=== PATIENT | female | born 1965 | race Caucasian/White ===

== ENCOUNTER 2016-10-13 10:55 | Emergency (ER) | payer MEDICAID ==
[~2016-10-13] VITALS: Ht 170.2 cm; Wt 88.4 kg
[~2016-10-13 10:55] MED LIST: ATOR40TA PO; HYDR-3144 PO
[2016-10-13] MEDS ORDERED: ALBUTEROL/IPRATROPIUM 2.5MG/0.5MG, 3 ML ONE (11:39)
[2016-10-13] MEDS ORDERED: INSU100V8 SQ (11:40)
[2016-10-13] MEDS ORDERED: INSU100V9 SQ (11:40)
[2016-10-13 11:42] VITALS: BP 141/67
[2016-10-13] MEDS ORDERED: SODIUM CHLORIDE FLUSH 10ML SYR IVF ONE (12:00)
[2016-10-13] MEDS ORDERED: ALBUTEROL/IPRATROPIUM 2.5MG/0.5MG, 3 ML NPPB ONE (12:00)
[2016-10-13 12:04] LABS: BLOOD UREA NITROGEN 15 mg/dL (7-18)
== END 2016-10-13 13:16 | disposition home or self-care (01) ==
LOC: ED 12:27
DX: J20.8 Acute bronchitis due to other specified organisms (principal); E11.9 Type 2 diabetes mellitus without complications; E78.00 Pure hypercholesterolemia, unspecified; I10 Essential (primary) hypertension; J45.909 Unspecified asthma, uncomplicated; I88.9 Nonspecific lymphadenitis, unspecified
CPT/HCPCS: 36415; 71020; 80048; 82040; 85025; 94640; 99285; J7512; J7620

== ENCOUNTER 2017-06-30 20:22 | Emergency (ER) | payer MEDICAID ==
[~2017-06-30] VITALS: Ht 170.2 cm; Wt 85.0 kg
[~2017-06-30 20:22] MED LIST changes: -HYDR-3144 PO; +HYDR-3245 PO; +INSU100V8 SQ; +INSU100V9 SQ
[2017-06-30] MEDS ORDERED: ONDANSETRON ODT 4 MG PO ONE (21:00)
[2017-06-30] MEDS ORDERED: ACETAMINOPHEN 500 MG TABLET PO ONE (21:00)
[2017-06-30] MEDS ORDERED: ACETAMINOPHEN 500 MG TABLET ONE (21:08)
[2017-06-30] MEDS ORDERED: ONDANSETRON ODT 4 MG ONE (21:08)
[2017-06-30] MEDS ORDERED: SODIUM CHLORIDE 0.9% 1,000ML IVBOLUS ONE ×2 (21:30→23:00)
[2017-06-30] MEDS ORDERED: SODIUM CHLORIDE FLUSH 10ML SYR IVF ONE (21:30)
[2017-06-30 21:40] LABS: MEAN CORPUSCULAR HEMOGLOBIN 30.8 pg (27.0-34.8); MEAN CORPUSCULAR VOLUME 90.5 fL (80-100); RED BLOOD COUNT 5.91 x10^6/uL (3.82-5.3); RED CELL DISTRIBUTION WIDTH 14.3 % (9.6-15.2)
[2017-06-30 21:52] LABS: ANION GAP 7 mmol/L (5-15); CALCIUM 10.3 mg/dL (8.5-10.1); CHLORIDE 99 mmol/L (98-107); CREATININE 0.95 mg/dL (0.55-1.02)
[2017-06-30 21:53] LABS: ALANINE AMINOTRANSFERASE 25 U/L (12-78); ALBUMIN 3.7 g/dL (3.4-5.0)
[2017-06-30 21:55] LABS: ALKALINE PHOSPHATASE 202 U/L (45-117); BASOPHILS % (AUTO) 0 % (0-1); BILIRUBIN,TOTAL 1.3 mg/dL (0.2-1.0); EOSINOPHILS # (AUTO) 0.05 x10^3/uL (0-0.4); EOSINOPHILS % (AUTO) 1 % (1-7); LYMPHOCYTES # (AUTO) 1.03 x10^3/uL (1-3.4); LYMPHOCYTES % (AUTO) 11 % (22-44); MD SCAN; MEAN PLATELET VOLUME 9.7 fL (7.4-10.4); MONOCYTES # (AUTO) 0.43 x10^3/uL (0.2-0.8); MONOCYTES % (AUTO) 5 % (2-9); NEUTROPHILS # (AUTO) 7.76 x10^3/uL (1.8-6.8); NEUTROPHILS % (AUTO) 84 % (42-75); PLATELET COUNT 97 x10^3/uL (130-400); TOTAL PROTEIN 8.2 g/dL (6.4-8.2)
[2017-06-30] MEDS ORDERED: ALBUTEROL/IPRATROPIUM 2.5MG/0.5MG, 3 ML ONE (22:22)
[2017-06-30] MEDS ORDERED: ALBUTEROL/IPRATROPIUM 2.5MG/0.5MG, 3 ML NPPB ONE (22:30)
[2017-06-30 23:21] LABS: CULTURE INDICATED? YES; MICROSCOPIC INDICATED
[2017-06-30] MEDS ORDERED: OMNIPAQUE 350 MG/ML, 100ML BOTTLE ONE (23:24)
[2017-06-30 23:39] VITALS: BP 136/82
[2017-07-01] MEDS ORDERED: CEFTRIAXONE PMX 1GM/50ML 50 ML ONE (01:06)
[2017-07-01] MEDS ORDERED: LACTATED RINGERS 1,000 ML IV SCH (01:30)
[2017-07-01] MEDS ORDERED: INSULIN GLARGINE 100 UNITS/ML, PEN SQ-INSULIN SCH (01:30)
[2017-07-01] MEDS ORDERED: HEPARIN 5,000 UNITS/ML, 1ML SQ SCH (01:30)
[2017-07-01] MEDS ORDERED: GUAIFENESIN/DM 200-20MG, 10ML UDC PO PRN (01:30)
[2017-07-01] MEDS ORDERED: hydrALAzine 20 MG/ML, 1ML IVPush PRN (01:30)
[2017-07-01] MEDS ORDERED: ACETAMINOPHEN 325 MG TABLET PO PRN (01:30)
[2017-07-01] MEDS ORDERED: HYDROcodone/APAP 10/325 MG TABLET PO PRN (01:30)
[2017-07-01] MEDS ORDERED: DEXTROSE 50%, 50ML SYRINGE IVPush PRN (01:30)
[2017-07-01] MEDS ORDERED: DEXTROSE 4 GM TAB.CHEW PO PRN (01:30)
[2017-07-01] MEDS ORDERED: GLUCAGON 1 MG IM PRN (01:30)
[2017-07-01] MEDS ORDERED: ONDANSETRON 2MG/ML, 2ML IVPush PRN (01:30)
[2017-07-01] MEDS ORDERED: POLYETHYLENE GLYCOL 17 GM PACKET PO PRN (01:30)
[2017-07-01] MEDS ORDERED: CEFTRIAXONE PMX 1GM/50ML 50 ML IV ONE (01:30)
[2017-07-01] MEDS ORDERED: INSULIN GLULISINE 10 UNIT SQ SCH (08:00)
[2017-07-01] MEDS ORDERED: SODIUM CHLORIDE FLUSH 10ML SYR IVF SCH (09:00)
[2017-07-01] MEDS ORDERED: ATORVASTATIN 40 MG TABLET PO SCH (21:00)
== END 2017-07-01 01:55 | disposition left against medical advice (07) ==
LOC: ED 23:33 → EDIP 07-01 01:00 → UNDOADMIN 07-01 01:00 → ED 07-01 01:55
DX: N30.90 Cystitis, unspecified without hematuria (principal); R65.20 Severe sepsis without septic shock; J96.01 Acute respiratory failure with hypoxia; A41.9 Sepsis, unspecified organism; E11.9 Type 2 diabetes mellitus without complications; G89.29 Other chronic pain; E78.00 Pure hypercholesterolemia, unspecified; F17.210 Nicotine dependence, cigarettes, uncomplicated; J45.909 Unspecified asthma, uncomplicated; I10 Essential (primary) hypertension; Z79.4 Long term (current) use of insulin
CPT/HCPCS: 36415; 71046; 71275; 80053; 81001; 83605; 83690; 84145; 85025; 87040; 87077; 87086; 87186; 93005; 94640; 96361; 96365; 99291; J0696; J7030; Q0162; Q9967; J7620

== ENCOUNTER 2017-07-01 14:21 | Inpatient (IN) | payer MEDICAID ==
[~2017-07-01] VITALS: Ht 170.2 cm; Wt 93.0 kg
[2017-07-01] MEDS ORDERED: SODIUM CHLORIDE 0.9% 1,000 ML IV ONE (14:34)
[2017-07-01 14:59] LABS: ALANINE AMINOTRANSFERASE 23 U/L (12-78); ANION GAP 8 mmol/L (5-15); CALCIUM 9.5 mg/dL (8.5-10.1); CHLORIDE 100 mmol/L (98-107); CREATININE 1.09 mg/dL (0.55-1.02)
[2017-07-01] MEDS ORDERED: CEFTRIAXONE PMX 1GM/50ML 50 ML IVPB ONE (15:00)
[2017-07-01] MEDS ORDERED: SODIUM CHLORIDE 0.9% 1,000ML IVBOLUS ONE (15:00)
[2017-07-01 15:02] LABS: ALKALINE PHOSPHATASE 152 U/L (45-117); BILIRUBIN,TOTAL 0.8 mg/dL (0.2-1.0)
[2017-07-01] MEDS ORDERED: CEFTRIAXONE PMX 1GM/50ML 50 ML ONE (15:10)
[2017-07-01 15:13] LABS: BASOPHILS # (AUTO) 0.01 x10^3/uL (0-0.1); BASOPHILS % (AUTO) 0 % (0-1); EOSINOPHILS % (AUTO) 0 % (1-7); LYMPHOCYTES # (AUTO) 1.24 x10^3/uL (1-3.4); LYMPHOCYTES % (AUTO) 17 % (22-44); MD SCAN; MEAN CORPUSCULAR HGB CONC 34.1 g/dL (32.4-35.8); MEAN CORPUSCULAR VOLUME 90.9 fL (80-100); MEAN PLATELET VOLUME 9.8 fL (7.4-10.4); MONOCYTES # (AUTO) 0.36 x10^3/uL (0.2-0.8); MONOCYTES % (AUTO) 5 % (2-9); NEUTROPHILS # (AUTO) 5.81 x10^3/uL (1.8-6.8); NEUTROPHILS % (AUTO) 78 % (42-75); PLATELET COUNT 95 x10^3/uL (130-400); RED BLOOD COUNT 5.25 x10^6/uL (3.82-5.3); RED CELL DISTRIBUTION WIDTH 14.4 % (9.6-15.2)
[2017-07-01 15:19] LABS: CULTURE INDICATED? YES; MICROSCOPIC INDICATED
[2017-07-01] MEDS ORDERED: HYDROcodone/APAP 5/325 TABLET PO PRN (16:30)
[2017-07-01] MEDS ORDERED: LABETALOL 5MG/ML, 20ML IVPush PRN (16:30)
[2017-07-01] MEDS ORDERED: HYDROcodone/APAP 10/325 MG TABLET PO PRN (16:30)
[2017-07-01] MEDS ORDERED: POLYETHYLENE GLYCOL 17 GM PACKET PO PRN (16:30)
[2017-07-01] MEDS: INSULIN LISPRO 100 UNITS/ML, PEN SQ-INSULIN SCH ×2 (16:30→22:32)
[2017-07-01] MEDS ORDERED: ONDANSETRON ODT 4 MG PO PRN (16:30)
[2017-07-01] MEDS ORDERED: ONDANSETRON 2MG/ML, 2ML IVPush PRN (16:30)
[2017-07-01] MEDS ORDERED: CEFTRIAXONE PMX 2GM/50ML 50 ML ONE (17:08)
[2017-07-01] MEDS ORDERED: ENOXAPARIN 40 MG/0.4 ML ONE (17:08)
[2017-07-01] MEDS ORDERED: NICOTINE 7 MG/24 HR PATCH.TD24 ONE (17:08)
[2017-07-01] MEDS: ENOXAPARIN 40 MG/0.4 ML SQ SCH (17:25)
[2017-07-01] MEDS: NICOTINE 7 MG/24 HR PATCH.TD24 TD SCH (17:25)
[2017-07-01] MEDS: CEFTRIAXONE PMX 2GM/50ML 50 ML IV SCH (17:25)
[2017-07-01] MEDS: SODIUM CHLORIDE 0.9% 1,000 ML IV SCH ×2 (17:25→23:56)
[2017-07-01] MEDS: ATORVASTATIN 40 MG TABLET PO SCH (21:00)
[2017-07-01] MEDS ORDERED: INSULIN GLARGINE 100 UNITS/ML, PEN SQ-INSULIN SCH (21:00)
[2017-07-02 02:00] VITALS: BP 123/67
[2017-07-02 05:54] LABS: MEAN CORPUSCULAR HGB CONC 34.3 g/dL (32.4-35.8); MEAN CORPUSCULAR VOLUME 90.5 fL (80-100); RED BLOOD COUNT 4.65 x10^6/uL (3.82-5.3); RED CELL DISTRIBUTION WIDTH 14.6 % (9.6-15.2)
[2017-07-02 05:57] LABS: ALBUMIN 2.6 g/dL (3.4-5.0); CHLORIDE 109 mmol/L (98-107)
[2017-07-02 06:05] LABS: ALANINE AMINOTRANSFERASE 25 U/L (12-78); ALKALINE PHOSPHATASE 129 U/L (45-117); ANION GAP 7 mmol/L (5-15); BILIRUBIN,TOTAL 0.5 mg/dL (0.2-1.0); CALCIUM 8.9 mg/dL (8.5-10.1); CHOL/HDL RATIO 10.2; CHOLESTEROL, TOTAL 132 mg/dL (140-239); CREATININE 0.52 mg/dL (0.55-1.02); HDL CHOL % 10 % (28-40); HDL CHOLESTEROL (DIRECT) 13 mg/dL (40-60); TOTAL PROTEIN 6.1 g/dL (6.4-8.2); TRIGLYCERIDES 407 mg/dL (50-200)
[2017-07-02] MEDS: SODIUM CHLORIDE 0.9% 1,000 ML IV SCH ×2 (06:11→20:47)
[2017-07-02 06:14] LABS: PLATELET COUNT 75 x10^3/uL (130-400)
[2017-07-02 06:16] LABS: BASOPHILS % (AUTO) 0 % (0-1); EOSINOPHILS # (AUTO) 0.03 x10^3/uL (0-0.4); EOSINOPHILS % (AUTO) 0 % (1-7); LYMPHOCYTES # (AUTO) 1.16 x10^3/uL (1-3.4); LYMPHOCYTES % (AUTO) 18 % (22-44); MD SCAN; MONOCYTES # (AUTO) 0.45 x10^3/uL (0.2-0.8); MONOCYTES % (AUTO) 7 % (2-9); NEUTROPHILS # (AUTO) 4.86 x10^3/uL (1.8-6.8); NEUTROPHILS % (AUTO) 75 % (42-75)
[2017-07-02] MEDS: INSULIN LISPRO 100 UNITS/ML, PEN SQ-INSULIN SCH ×4 (07:45→23:11)
[2017-07-02 08:07] VITALS: BP 102/64
[2017-07-02] MEDS: SENNA/DOCUSATE TABLET PO SCH (09:18)
[2017-07-02] MEDS ORDERED: SODIUM PHOSPHATE 30 MMOL in SODIUM CHLORIDE 0.9% 500 ML IV ONE (10:30)
[2017-07-02] MEDS ORDERED: SODIUM PHOSPHATE 4 MEQ/ML IV SCH (10:30)
[2017-07-02] MEDS ORDERED: INSULIN GLARGINE 100 UNITS/ML, PEN SQ-INSULIN SCH (10:30)
[2017-07-02 12:19] LABS: HEMOGLOBIN A1C 11.2 % (4.2-6.3)
[2017-07-02 13:52] VITALS: BP 102/64
[2017-07-02] MEDS: ENOXAPARIN 40 MG/0.4 ML SQ SCH (17:17)
[2017-07-02] MEDS: NICOTINE 7 MG/24 HR PATCH.TD24 TD SCH (17:18)
[2017-07-02] MEDS: CEFTRIAXONE PMX 2GM/50ML 50 ML IV SCH (17:19)
[2017-07-02 20:28] VITALS: BP 125/69
[2017-07-02] MEDS: ATORVASTATIN 40 MG TABLET PO SCH (20:46)
[2017-07-02] MEDS: INSULIN GLARGINE 100 UNITS/ML, PEN SQ-INSULIN SCH (23:11)
[2017-07-03 01:01] VITALS: BP 132/71
[2017-07-03] MEDS: SODIUM CHLORIDE 0.9% 1,000 ML IV SCH (03:14)
[2017-07-03 06:10] LABS: ALBUMIN 2.4 g/dL (3.4-5.0); ANION GAP 6 mmol/L (5-15); CALCIUM 8.9 mg/dL (8.5-10.1); CHLORIDE 113 mmol/L (98-107); CREATININE 0.42 mg/dL (0.55-1.02)
[2017-07-03 06:21] LABS: MEAN CORPUSCULAR HEMOGLOBIN 30.9 pg (27.0-34.8); MEAN CORPUSCULAR HGB CONC 34.3 g/dL (32.4-35.8); MEAN CORPUSCULAR VOLUME 90.2 fL (80-100); RED BLOOD COUNT 4.33 x10^6/uL (3.82-5.3); RED CELL DISTRIBUTION WIDTH 14.3 % (9.6-15.2)
[2017-07-03 06:55] LABS: BASOPHILS # (AUTO) 0.01 x10^3/uL (0-0.1); BASOPHILS % (AUTO) 0 % (0-1); EOSINOPHILS % (AUTO) 2 % (1-7); LYMPHOCYTES % (AUTO) 41 % (22-44); MD SCAN; MONOCYTES # (AUTO) 0.41 x10^3/uL (0.2-0.8); MONOCYTES % (AUTO) 9 % (2-9); NEUTROPHILS # (AUTO) 2.27 x10^3/uL (1.8-6.8); NEUTROPHILS % (AUTO) 48 % (42-75); PLATELET COUNT 69 x10^3/uL (130-400)
[2017-07-03 07:59] VITALS: BP 125/67
[2017-07-03] MEDS: INSULIN LISPRO 100 UNITS/ML, PEN SQ-INSULIN SCH ×5 (08:22→21:27)
[2017-07-03] MEDS ORDERED: POTASSIUM CHLORIDE 20 MEQ TAB.ER.PRT PO ONE (08:30)
[2017-07-03] MEDS: INSULIN GLARGINE 100 UNITS/ML, PEN SQ-INSULIN SCH ×2 (09:43→21:26)
[2017-07-03] MEDS: SENNA/DOCUSATE TABLET PO SCH (09:44)
[2017-07-03] MEDS: NEUTRA PHOS K 250 MG TABLET PO SCH ×3 (09:45→21:26)
[2017-07-03 13:00] VITALS: BP 118/71
[2017-07-03] MEDS: CEFTRIAXONE PMX 2GM/50ML 50 ML IV SCH (17:42)
[2017-07-03] MEDS: NICOTINE 7 MG/24 HR PATCH.TD24 TD SCH (17:43)
[2017-07-03 19:19] VITALS: BP 123/73
[2017-07-03] MEDS: ATORVASTATIN 40 MG TABLET PO SCH (21:27)
[2017-07-04 01:35] VITALS: BP 136/77
[2017-07-04 07:26] VITALS: BP 139/80
[2017-07-04] MEDS: NEUTRA PHOS K 250 MG TABLET PO SCH (08:51)
[2017-07-04] MEDS: INSULIN LISPRO 100 UNITS/ML, PEN SQ-INSULIN SCH ×2 (08:52→11:40)
[2017-07-04] MEDS: INSULIN GLARGINE 100 UNITS/ML, PEN SQ-INSULIN SCH (08:52)
[2017-07-04] MEDS: SENNA/DOCUSATE TABLET PO SCH (08:53)
[2017-07-04] MEDS ORDERED: CEFT2PIG2 IV (12:08)
[2017-07-04 15:09] VITALS: BP 125/77
[2017-07-04] MEDS ORDERED: CEFTRIAXONE 2,000 MG in DEXTROSE 5% 50 ML IV SCH (16:30)
== END 2017-07-04 16:06 | disposition home or self-care (01) | DRG 872 ==
LOC: ED 15:35 → EDIP 15:36 → ED 15:49 → 4EST 20:25
PROVIDERS: ADMIT Hospitalist; ATTEND Hospitalist
PROC: 02HV33Z Insertion of Infusion Device into Superior Vena Cava, Percutaneous Approach (ICD-10-PCS; principal; 2017-07-04)
PROC: B548ZZA Ultrasonography of Superior Vena Cava, Guidance (ICD-10-PCS; 2017-07-04)
DX: A41.9 Sepsis, unspecified organism (principal); D69.6 Thrombocytopenia, unspecified; E44.0 Moderate protein-calorie malnutrition; E11.65 Type 2 diabetes mellitus with hyperglycemia; E87.1 Hypo-osmolality and hyponatremia; K76.0 Fatty (change of) liver, not elsewhere classified; N39.0 Urinary tract infection, site not specified; B96.20 Unspecified Escherichia coli [E. coli] as the cause of diseases classified elsewhere; B96.89 Other specified bacterial agents as the cause of diseases classified elsewhere; Z68.32 Body mass index [BMI] 32.0-32.9, adult; E78.00 Pure hypercholesterolemia, unspecified; E78.5 Hyperlipidemia, unspecified; I10 Essential (primary) hypertension; J45.909 Unspecified asthma, uncomplicated; R65.20 Severe sepsis without septic shock; Z16.11 Resistance to penicillins; Z82.3 Family history of stroke; Z87.891 Personal history of nicotine dependence; Z88.0 Allergy status to penicillin
CPT/HCPCS: 36415; 36569; 71045; 76700; 76937; 77001; 80048; 80053; 80061; 81001; 82040; 82962; 83036; 83605; 83735; 84100; 84145; 84439; 85025; 87040; 87086; 93306; 96365; J0696; J1650; C1751; J1815; J7030; J7040

== ENCOUNTER 2018-10-04 23:10 | Emergency (ER) | payer MEDICAID ==
[~2018-10-04] VITALS: Ht 170.2 cm; Wt 93.9 kg
[~2018-10-04 23:10] MED LIST changes: +CEFT2PIG2 IV
[2018-10-04 23:18] VITALS: BP 143/85
--- NOTE | 2018-10-05 00:28 | NUR ---
PT IN RADIOLOGY
== END 2018-10-05 01:54 | disposition home or self-care (01) ==
LOC: ED 10-05 01:47
DX: R60.0 Localized edema (principal); E78.5 Hyperlipidemia, unspecified; E78.00 Pure hypercholesterolemia, unspecified; E11.9 Type 2 diabetes mellitus without complications; J45.909 Unspecified asthma, uncomplicated; I10 Essential (primary) hypertension
CPT/HCPCS: 93970; 99284

== ENCOUNTER 2020-09-29 19:34 | Emergency (ER) | payer MEDICAID ==
[~2020-09-29] VITALS: Ht 170.2 cm; Wt 91.8 kg
[~2020-09-29 19:34] MED LIST changes: -HYDR-3245 PO; +HYDR1TAB53 PO
[2020-09-29] MEDS ORDERED: SODIUM CHLORIDE FLUSH 10ML SYR IVF ONE (20:00)
[2020-09-29 21:02] LABS: BASOPHILS % (AUTO) 1 % (0-1); EOSINOPHILS % (AUTO) 2 % (1-7); LYMPHOCYTES % (AUTO) 32 % (22-44); MEAN CORPUSCULAR HEMOGLOBIN 30.5 pg (27.0-34.8); MEAN CORPUSCULAR HGB CONC 33.8 g/dL (32.4-35.8); MEAN PLATELET VOLUME 9.2 fL (7.4-10.4); MONOCYTES % (AUTO) 6 % (2-9); NEUTROPHILS % (AUTO) 59 % (42-75); PLATELET COUNT 160 x10^3/uL (130-400); RED BLOOD COUNT 5.31 x10^6/uL (3.82-5.3); RED CELL DISTRIBUTION WIDTH 16.2 % (9.6-15.2)
[2020-09-29 21:10] LABS: ALANINE AMINOTRANSFERASE 26 U/L (12-78); ALBUMIN 3.4 g/dL (3.4-5.0); ANION GAP 6 mmol/L (5-15); CALCIUM 9.6 mg/dL (8.5-10.1); CHLORIDE 110 mmol/L (98-107); CREATININE 0.74 mg/dL (0.55-1.02)
[2020-09-29 21:12] LABS: ALKALINE PHOSPHATASE 216 U/L (45-117); BILIRUBIN,TOTAL 0.4 mg/dL (0.2-1.0); TOTAL PROTEIN 7.3 g/dL (6.4-8.2)
--- NOTE | 2020-09-29 21:15 | NUR ---
PT. IS A & O X 4 WITH A GCS OF 15. PT. HAS C/O RIGHT RIB PAIN AFTER FALLING X 2 DAYS AGO IN THE TUB. PT. STATES NO LOC. PT.'S LUNGS ARE CTA THROUGHOUT. ABD. IS SOFT AND FLAT WITH BS + X 4 QUADS. PULSES ARE +2 THROUGHOUT. CAP REFILL IS BRISK, LESS THAN 2 SECONDS. PT.'S ABD. IS SOFT AND ROUND WITH BS + X 4 QUADS. PT. HAS THE BP CUFF AND PULSE OX IN PLACE. VSS. SIDERAILS REMAIN UP X 2 WITH THE CALL LIGHT IN PLACE.
--- NOTE | 2020-09-29 22:07 | NUR ---
PT. IS REQUESTING FOOD. PT. WAS INSTRUCTED THAT SHE IS NPO. VSS. AWAITING CT SCAN.
--- NOTE | 2020-09-29 22:16 | NUR ---
PT. IS UNHAPPY THAT SHE HAS TO HAVE AN IV. RN AYAN EXPLAINED THAT HER CT SCAN IS WITH CONTRAST.
[2020-09-29] MEDS ORDERED: OMNIPAQUE 350 MG/ML, 100ML BOTTLE ONE (23:00)
--- NOTE | 2020-09-29 23:51 | NUR ---
PT. HAS CONCERNS THAT SHE IS A DIABETIC AND HAS NOT EATEN AND STATES THAT SHE GETS "PISSY" WHEN SHE DOESN'T EAT. DR. GUERRERO TO THE PT.'S BEDSIDE TO DISCUSS NORMAL RADIOLOGICAL FINDINGS. PT. WAS GIVEN DISCHARGE INSTRUCTIONS WITH UNDERSTANDING VERBALIZED. PT.'S IV WAS DCD SOON SHE RETURNED FROM CT AT HER REQUEST. CATH TIP IS INTACT. PT. WAS AMBULATORY TO THE WHEELCHAIR AND TAKEN TO DISCHARGE.
[2020-09-29 23:53] VITALS: BP 136/80
== END 2020-09-29 23:56 | disposition home or self-care (01) ==
LOC: ED 21:38
DX: G89.11 Acute pain due to trauma (principal); R07.89 Other chest pain; R10.12 Left upper quadrant pain; I11.9 Hypertensive heart disease without heart failure; E11.9 Type 2 diabetes mellitus without complications; F17.210 Nicotine dependence, cigarettes, uncomplicated; W01.0XXA Fall on same level from slipping, tripping and stumbling without subsequent striking against object, initial encounter; Y93.89 Activity, other specified; Y92.009 Unspecified place in unspecified non-institutional (private) residence as the place of occurrence of the external cause; Y99.8 Other external cause status
CPT/HCPCS: 36415; 71101; 74177; 80053; 83690; 85025; 99285; Q9967

== ENCOUNTER 2020-11-06 18:44 | Emergency (ER) | payer MEDICAID ==
[~2020-11-06] VITALS: Ht 170.2 cm; Wt 91.0 kg
--- NOTE | 2020-11-06 21:07 | NUR ---
dr. merida at bedside
[2020-11-06 21:18] VITALS: BP 131/82
== END 2020-11-06 21:50 | disposition home or self-care (01) ==
LOC: ED 21:00
DX: H65.01 Acute serous otitis media, right ear (principal); H72.01 Central perforation of tympanic membrane, right ear; H91.91 Unspecified hearing loss, right ear; I10 Essential (primary) hypertension; E11.9 Type 2 diabetes mellitus without complications; E78.00 Pure hypercholesterolemia, unspecified; E78.5 Hyperlipidemia, unspecified
CPT/HCPCS: 82962; 99283